=== PATIENT | male | born 1980 | race Caucasian/White ===

== ENCOUNTER → 2018-09-04 | Outpatient (CLI) | payer OTHER ==
[2018-09-04 09:55] LABS: BASOPHILS % (AUTO) 0 % (0-10); EOSINOPHILS % (AUTO) 0 % (0-10); HEMATOCRIT 40 % (40-54); HEMOGLOBIN 13.7 G/DL (13.3-17.7); LYMPHOCYTES # (AUTO) 1.4 X 10^3 (1.0-4.0); LYMPHOCYTES % (AUTO) 26 % (12-44); MEAN CORPUSCULAR HEMOGLOBIN 29 PG (25-34); MEAN CORPUSCULAR HGB CONC 34 G/DL (32-36); MEAN CORPUSCULAR VOLUME 86 FL (80-99); MEAN PLATELET VOLUME 10.1 FL (7.4-10.4); MONOCYTES # (AUTO) 0.4 X 10^3 (0.0-1.0); MONOCYTES % (AUTO) 7 % (0-12); NEUTROPHILS # (AUTO) 3.7 X 10^3 (1.8-7.8); NEUTROPHILS % (AUTO) 67 % (42-75); PLATELET COUNT 233 10^3/uL (130-400); RED CELL DISTRIBUTION WIDTH 13.1 % (10.0-14.5); WHITE BLOOD COUNT 5.5 10^3/uL (4.3-11.0)
[2018-09-04 10:09] LABS: ALANINE AMINOTRANSFERASE 66 U/L (0-55); ALBUMIN 4.7 GM/DL (3.2-4.5); ALKALINE PHOSPHATASE 83 U/L (40-136); BILIRUBIN,TOTAL 0.5 MG/DL (0.1-1.0); BUN/CREATININE RATIO 12; CALCIUM 9.7 MG/DL (8.5-10.1); CARBON DIOXIDE 24 MMOL/L (21-32); CHLORIDE 103 MMOL/L (98-107); CHOLESTEROL 198 MG/DL (< 200); CREATININE SERUM 1.15 MG/DL (0.60-1.30); GFR ESTIMATED > 60; GLUCOSE 97 MG/DL (70-105); HDL CHOLESTEROL 35 MG/DL (40-60); POTASSIUM 3.9 MMOL/L (3.6-5.0); SODIUM 137 MMOL/L (135-145); TOTAL PROTEIN 7.5 GM/DL (6.4-8.2); TRIGLYCERIDES 175 MG/DL (<150); VLDL CHOLESTEROL 35 MG/DL (5-40)
--- NOTE | 2018-09-07 21:19 | Physician Query-Final Dx ---
AURELIANO ORTEGA 09/07/18 2119: Clinic Account Progress/Dx Physician Query: Please give diagnosis Date of Service Sep 04, 2018 at 09:23 TANIA JEAN-BAPTISTE APRN 09/10/18 1156: Clinic Account Progress/Dx DIAGNOSIS: Diagnosis General adult medical exam w/o abnormal findings (ICD -10 Z00.00) AURELIANO ORTEGA Sep 07, 2018 21:19 TANIA JEAN-BAPTISTE APRN Sep 10, 2018 11:56
== END ==
LOC: LAB 09:23
PROVIDERS: ATTEND Nurse Practitioner Family
DX: Z00.00 Encounter for general adult medical examination without abnormal findings (principal)
CPT/HCPCS: 36415; 80053; 80061; 82330; 83970; 84443; 85025